=== PATIENT | female | born 1995 | race Two or more races ===

== ENCOUNTER 2018-12-30 16:20 | Emergency (ER) | payer SELFPAY ==
--- NOTE | 2018-12-30 17:21 | ED ---
Skin Complaint - HPI Summary HPI Summary: Patient is a 23-year-old female who presents emergency department for evaluation of needle stick to the right wrist. 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 Patient states that her classmates injected vaccine and cow moved in her arms and back and stuck her in the wrist. Pt. cleaned area with soap and water. Pt. concerned because wrist has become more sore through the day. Immunizations are up to date. Sxs are mild in severity. Movement makes sxs worse. Rest makes sxs better. Reportedly [employer] spoke with Dr. Marrufo, hand sx , who recommended ER evaluation for possible wash out to prevent infection. - History of Current Complaint Chief Complaint: EDExposureBodyFluid Time Seen by Provider: 12/30/18 17:09 Stated Complaint: STUCK BY DIRT NEEDLE IN RT WRIST PER PT Hx Obtained From: Patient Pain Intensity: 2 - Allergy/Home Medications Allergies/Adverse Reactions: Allergies Allergy/AdvReac Type Severity Reaction Status Date / Time No Known Allergies Allergy Verified 12/30/18 16:41 PMH/Surg Hx/FS Hx/Imm Hx Previously Healthy: Yes - Immunization History Date of Tetanus Vaccine: 08/22/2015 Immunizations Up to Date: Yes Infectious Disease History: No Infectious Disease History: Denies: Traveled Outside the [place] in Last 30 Days - Social History Alcohol Use: Occasionally Substance Use Type: Reports: None Smoking Status (MU): Never Smoked Tobacco Review of Systems Positive: Other - right wrist pain Positive: Other - puncture wound right wrist All Other Systems Reviewed And Are Negative: Yes Physical Exam Triage Information Reviewed: Yes Vital Signs On Initial Exam: Initial Vitals Temp Pulse Resp BP Pulse Ox 97.9 F 79 14 128/78 99 12/30/18 16:23 12/30/18 16:23 12/30/18 16:23 12/30/18 16:23 12/30/18 16:23 Vital Signs Reviewed: Yes Appearance: Positive: Well-Appearing - Pt. sitting on bed in NAD. Friend present. Skin: Positive: Warm, Dry Head/Face: Positive: Normal Head/Face Inspection Eyes: Positive: Normal, EOMI, ELIOT Neck: Positive: Supple Musculoskeletal: Positive: Other - Small puncture wound noted to volar aspect of right wrist with mild surrounding erythema. Full ROM of wrist with pain. Pain with extension of digits. Neurological: Positive: Normal, CN Intact II-III Psychiatric: Positive: Affect/Mood Appropriate Diagnostics - Vital Signs Vital Signs Temp Pulse Resp BP Pulse Ox 12/30/18 16:23 97.9 F 79 14 128/78 99 - Laboratory Lab Statement: Any lab studies that have been ordered have been reviewed, and results considered in the medical decision making process. Course/Dx - Course Assessment/Plan: Pt. presenting with increased pain and decreased ROM after needle stick to right wrist. Tetanus is up to date. ID consulted for antibx. 1730: Case discussed with Dr. Menendez. She can exam pt. in ED after her OR case. Pending ID consult and ortho. consult. Pt. will be signed out to JOSELITO Hernandez. - Differential Diagnoses - Skin Complaint Differential Diagnoses: Abscess, Cellulitis, Foreign Body - Diagnoses Provider Diagnoses: Needle stick injury, Puncture wound Discharge - Sign-Out/Discharge Documenting (check all that apply): Sign-Out Patient Signing out patient TO: Shi Griffith Patient Received Moderate/Deep Sedation with Procedure: No - Discharge Plan Condition: Good Disposition: HOME Prescriptions: Amoxicillin/Clavulanate TAB* [Augmentin TAB 875*] 875 mg PO BID #9 tab Fluconazole [Diflucan 150 MG (NF)] 150 mg PO ONCE #1 tab Referrals: [facility] [place] - [facility] [Primary Care Provider] - Mery Menendez MD [Medical Doctor] - Additional Instructions: use splint on area as needed ice, elevate Take Tylenol or ibuprofen every 6 hours for pain take Augmentin twice a day for 5 days Return to ED if develop spreading redness, fever, or any new or worsening symptoms - Billing Disposition and Condition Condition: GOOD Disposition: Home
[2018-12-30] MEDS ORDERED: Amoxicillin/Clavulanate TAB* 875 MG PO ONE (17:33)
--- NOTE | 2018-12-30 18:05 | ED ---
Progress - Progress Note Progress Note: patient signed out by Sagar pending ortho evaluation. discussed with dr payne who says to cover with zosyn and augmentin could be used. dr menendez saw patient and states can be discharged with splint removable and antibiotics Course/Dx - Course Course Of Treatment: patient was evaluated by Dr Menendez who felt that patient does not need a wash out. will just wait and see. gave dose of IV zosyn and will discharge on augmentin. gave removable splint. warned if develop worsening rash or fever to return. patient understand and agrees with plan. - Diagnoses Provider Diagnoses: Needle stick injury, Puncture wound Discharge - Sign-Out/Discharge Documenting (check all that apply): Patient Departure, Receiving Sign-Out Receiving patient FROM: Sagar Calvo Patient Received Moderate/Deep Sedation with Procedure: No - Discharge Plan Condition: Good Disposition: HOME Prescriptions: Amoxicillin/Clavulanate TAB* [Augmentin TAB 875*] 875 mg PO BID #9 tab Fluconazole [Diflucan 150 MG (NF)] 150 mg PO ONCE #1 tab Referrals: [facility] - [facility] [Primary Care Provider] - Mery Menendez MD [Medical Doctor] - Additional Instructions: use splint on area as needed ice, elevate Take Tylenol or ibuprofen every 6 hours for pain take Augmentin twice a day for 5 days Return to ED if develop spreading redness, fever, or any new or worsening symptoms - Billing Disposition and Condition Condition: GOOD Disposition: Home
[2018-12-30] MEDS ORDERED: Piperacillin/Tazobac ADVAN(*) 3.375 GM in NS 0.9% 100 ML* 100 ML IVPB ONE (18:25)
[2018-12-30 19:37] VITALS: BP 112/69
--- NOTE | 2018-12-30 22:42 | CONS ---
ORTHOPEDIC CONSULTATION REPORT: DATE OF CONSULT: 12/30/18 LOCATION: Emergency room. CHIEF COMPLAINT: Right wrist puncture wound and pain. 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 This did puncture her skin along the carpal tunnel region of her right dominant wrist. The needle was dirty and had been near the cow's muscle and rectum. The patient reports as the day went on and she continued to work, she developed increased pain with full extension of her fingers and some incre ased redness around the puncture site. She had immediately cleaned the area with soap and water. He r immunizations and tetanus are up-to- date. She was brought to the emergency room and given a dose of IV Zosyn. PAST MEDICAL HISTORY: None. PAST SURGICAL HISTORY: None. HOME MEDICATIONS: None. ALLERGIES: No known drug allergies. FAMILY HISTORY: Negative. 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 No tobacco, alcohol, or recreational drug use . Normally very active, right-hand dominant. REVIEW OF SYSTEMS: Fourteen systems reviewed with the patient today, positive for the right wrist pu ncture wound and pain, right hand pain. Negative for fevers, chills, chest pain, shortness of breath , nausea, vomiting, headache or dizziness. Otherwise, the patient reports review of systems is negati ve or not relevant. PHYSICAL EXAM: General: The patient is a well-nourished female, in no apparent distress. Alert and oriented x3. Pleasant mood and appropriate affect. Vitals: Temperature 97.9, pulse 79, blood press ure 128/78. HEENT: Atraumatic, normocephalic. Pupils equal and reactive to light. Chest: Unlabor ed breathing. Right upper extremity: The patient has a small puncture wound right over the carpal tu nnel region of her right volar wrist. There is a small amount of erythema around this, minimal swell ing. She can make a complete fist. She can fully extend her thumb and all fingers, although full ex tension does cause her some wrist pain. She has full sensation to light touch in all nerve distributi ons and 2+ palpable radial pulse. No other wounds. No other erythema. No drainage from the punctur e site. ASSESSMENT AND PLAN: Ms. 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 She unfortunately had a puncture wound to the right volar wrist with a dirty needle today. The patient a nd I discussed the puncture wound. Dr. Lezama of Infectious Disease was contacted and recommended p.o. Augmentin. The patient feels comfortable going home with a removable splint. She will ice and rest the hand. She will continue to work on gentle range of motion of her fingers. She will take th e p.o. Augmentin over the weekend. She will be watching the wrist for any increased erythema, swelli ng, and pain. If she has any increase in symptoms, she will return to the ED where I will see her im mediately. The patient and I briefly discussed the washout of this area today. Although the needle was known to be dirty, at this point, we both feel it would be aggressive to make a large incision before watchin g this wound to see if it becomes infected. We will follow her closely. She agrees with the treatme nt plan and will follow up in the ED immediately should her symptoms progress. [id number]/[facility] #: [id number]
== END 2018-12-30 19:36 | disposition home or self-care (01) ==
LOC: ED 16:20
DX: S61.531A Puncture wound without foreign body of right wrist, initial encounter (principal); W46.1XXA Contact with contaminated hypodermic needle, initial encounter; Y93.K9 Activity, other involving animal care; Y92.9 Unspecified place or not applicable
CPT/HCPCS: 96360; 96365; 99282; A9270-GY; J2543